=== PATIENT | female | born 1980 | race African-American/Black ===

== ENCOUNTER 2016-12-28 05:40 | Emergency (ER) | payer OTHER ==
[2016-12-28 05:25] LABS: HEMATOCRIT 38.7 % (35.0-45.0); HEMOGLOBIN 13.2 gm/dL (12.0-16.0); LYMPHOCYTE# 0.5 X10e3 (1.0-3.5); LYMPHOCYTE% 7.6 % (17.0-45.0); MEAN CELL VOLUME 93.8 FL (83-96); MEAN CORPUSCULAR HGB CONC 34.1 g/dL (30-36); MEAN PLATELET VOLUME 8.7 FL (6.5-11.5); MONOCYTE# 0.2 X10e3 (0-1.0); MONOCYTE% 3.1 % (3.0-12.0); NEUTROPHIL# 5.9 X10e3 (1.5-7.1); NEUTROPHIL% 89.3 % (40-75); PLATELET COUNT 181 X10e3 (140-420); RED BLOOD COUNT 4.13 X10e (3.90-5.30); RED CELL DISTRIBUTION WIDTH 13.2 % (11.0-15.5); WHITE BLOOD COUNT 6.6 X10e3 (4.0-10.5)
[2016-12-28 05:29] LABS: DIFF IND NO
[2016-12-28 05:49] LABS: URINE SOURCE CLEAN CATCH
[2016-12-28 05:53] LABS: ALBUMIN SERUM 4.6 g/dL (3.5-5.0); ALKALINE PHOSPHATASE 60 U/L (32-92); ALT (SGPT) 25 U/L (10-40); AST (SGOT) 28 U/L (10-42); BILIRUBIN, DIRECT 0.1 mg/dL (0.0-0.2); BILIRUBIN,INDIRECT 0.4 mg/dL (0.0-0.9); BILIRUBIN,TOTAL 0.5 mg/dL (0.2-2.0); BLOOD UREA NITROGEN 10 mg/dL (9-23); BUN/CREATININE RATIO 14.28; CALCIUM SERUM 9.5 mg/dL (8.4-10.2); CARBON DIOXIDE 23 mmol/L (22-31); CHLORIDE 107 mmol/L (100-111); CREATININE SERUM 0.7 mg/dL (0.6-1.4); GLOM FILT RATE Estimated ABOVE60 mL/min (>60); GLUCOSE FASTING 133 mg/dL (70-110); LIPASE 24 U/L (22-51); POTASSIUM 3.3 mmol/L (3.5-5.1); PROTEIN TOTAL SERUM 7.7 g/dL (6.0-8.3); SODIUM 137 mmol/L (135-145)
[2016-12-28 06:07] LABS: URINE APPEARANCE CLEAR; URINE BILIRUBIN NEG (NEG); URINE BLOOD NEG (NEG); URINE COLOR YELLOW; URINE GLUCOSE NEG (NEG); URINE KETONE NEG (NEG); URINE LEUKOCYTE ESTERASE TRACE (NEG); URINE NITRATE NEG (NEG); URINE PH 8.5 (5-8); URINE PROTEIN TRACE (NEG); URINE SPECIFIC GRAVITY 1.029 (1.003-1.035); URINE UROBILINOGEN 0.2 MG/DL (NEG)
[2016-12-28 06:10] LABS: CULTURE INDICATED? YES; URINE BACTERIA AUWI 1+ (NEGATIVE); URINE SQUAMOUS EPITHELIAL CELL FEW /[HPF]
[2016-12-28 06:14] LABS: U HYALINE CASTS AUWI 0-2 /[LPF]
[2016-12-28 06:19] LABS: AMPHETAMINE NEG (NEG); BARBITURATES NEG (NEG); BENZODIAZEPINES NEG (NEG); COCAINE NEG (NEG); MARIJUANA POS (NEG); OPIATES NEG (NEG); TRICYCLIC ANTIDEPRESSANTS NEG (NEG); U METHADONE NEG (NEG)
[2016-12-29] MEDS ORDERED: REGLAN (03:34)
[2016-12-29] MEDS ORDERED: ZOFRAN (03:34)
== END 2016-12-28 07:00 | disposition home or self-care (01) ==
LOC: CED 05:40
PROVIDERS: Emergency Medicine
DX: F12.10 Cannabis abuse, uncomplicated (principal); Z88.1 Allergy status to other antibiotic agents
CPT/HCPCS: 36415; 80048; 80076; 80307; 81003; 83690; 84703; 85025; 87086; 96361; 96374; 96375; 99284; J1885; J2405; J2765

== ENCOUNTER 2016-12-29 04:02 | Emergency (ER) | payer OTHER ==
--- NOTE | ~2016-12-29 | CT2 ---
[facility]. [facility] A Service of [facility] / [facility] RADIOLOGY TEXT RESULTS PATIENT: SANJIV MANZANO LOCATION: SED : 78 UNIT #: [id number] AGE: [address]: Alverto Canela MD SEX: F ORDER DR: [id number] [place] [id number] E MR#: [id number] Acc #: [id number] NAME: SANJIV MANZANO : 1980 SEX: F STUDY DATE/TIME: 12/29/2016 4:37 UNIT: SED ROOM: STUDY DESCRIPTION: CT Abd and Pelv W Cont Attending Physician: Alverto Canela M.D. Ordering Physician: Alverto Canela M.D. Primary Care Physician: No Primary Care Physician MEDICAL IMAGING REPORT This report is preliminary unless electronic signature is present. EXAM CT abdomen and pelvis with contrast, date: 12/29/2016 at 04:37. HISTORY 36-year-old female with mid abdominal pain and nausea, vomiting since Friday. COMPARISON None. PROCEDURE 5 mL axial images from lung bases through lesser trochanters with intravenous and enteric contrast administration. Sagittal coronal reformed images were obtained. This CT exam was performed with one or more of the following radiation dose reduction techniques: automatic exposure control, adjustment of mA and/or kV according to patient size, and iterative reconstruction. FINDINGS Lung bases are clear. Probable tiny cyst in the lateral left hepatic segment and subcapsular right hepatic lobe. Gallbladder, spleen, pancreas, adrenals and kidneys are within normal limits. No free air free fluid is identified. There is moderate gaseous distension of the colon predominately transverse and descending segments. The appendix is filled with air and appears normal. Pelvis findings: Uterus is bulky and enlarged with multiple high-density, low-density nodules and a densely calcified nodule, thought to represent multiple uterine leiomyomas. Ovaries not visualized. No definite pelvic free fluid is seen. Urinary bladder and rectum are normal. Small bilateral calcified pelvic phleboliths. [facility] A Service [facility] RADIOLOGY TEXT RESULTS PATIENT: SANJIV MANZANO LOCATION: SED : 79 UNIT #: [id number] AGE: [address]: Alverto Canela MD SEX: F ORDER DR: IMPRESSION 1. Moderate gaseous distension of the transverse and descending colon. No acute bowel inflammatory changes or evidence of bowel obstruction. 2. The appendix is normal. 3. Bulky multinodular uterus suggesting multiple uterine leiomyomas. This can be correlated to pelvic ultrasound on a non emergent basis. 4. Probable small hepatic cysts. Dictated by... Nida Hamm M.D. THIS IS AN ELECTRONICALLY VERIFIED REPORT Nida Hamm M.D. at 12/29/2016 9:57 PM LLH/tonja TD: 12/29/2016 12:53 JOB #: [id number] MEDICAL IMAGING REPORT
[~2016-12-29 04:02] MED LIST: REGLAN; ZOFRAN
[2016-12-29 04:31] LABS: ALBUMIN SERUM 4.3 g/dL (3.5-5.0); ALKALINE PHOSPHATASE 59 U/L (32-92); ALT (SGPT) 22 U/L (10-40); AST (SGOT) 27 U/L (10-42); BILIRUBIN,TOTAL 0.7 mg/dL (0.2-2.0); BLOOD UREA NITROGEN 10 mg/dL (9-23); BUN/CREATININE RATIO 14.28; CALCIUM SERUM 9.3 mg/dL (8.4-10.2); CARBON DIOXIDE 23 mmol/L (22-31); CHLORIDE 104 mmol/L (100-111); CREATININE SERUM 0.7 mg/dL (0.6-1.4); GLOM FILT RATE Estimated ABOVE60 mL/min (>60); GLUCOSE FASTING 119 mg/dL (70-110); LIPASE 28 U/L (22-51); PROTEIN TOTAL SERUM 7.9 g/dL (6.0-8.3); SODIUM 135 mmol/L (135-145)
[2016-12-29 04:32] LABS: BILIRUBIN, DIRECT <0.1 mg/dL (0.0-0.2); BILIRUBIN,INDIRECT 0.6 mg/dL (0.0-0.9); POTASSIUM 2.6 mmol/L (3.5-5.1)
[2016-12-29 05:15] LABS: BASOPHIL% 0.1 % (0-2.5); HEMOGLOBIN 12.9 gm/dL (12.0-16.0); LYMPHOCYTE# 0.9 X10e3 (1.0-3.5); LYMPHOCYTE% 13.6 % (17.0-45.0); MEAN CELL VOLUME 94.1 FL (83-96); MEAN PLATELET VOLUME 10.2 FL (6.5-11.5); MONOCYTE# 0.5 X10e3 (0-1.0); MONOCYTE% 7.2 % (3.0-12.0); NEUTROPHIL# 5.4 X10e3 (1.5-7.1); NEUTROPHIL% 79.1 % (40-75); PLATELET COUNT 192 X10e3 (140-420); RED BLOOD COUNT 4.04 X10e (3.90-5.30); RED CELL DISTRIBUTION WIDTH 13.5 % (11.0-15.5); WHITE BLOOD COUNT 6.8 X10e3 (4.0-10.5)
[2016-12-29 05:16] LABS: DIFF IND NO
== END 2016-12-29 05:29 | disposition home or self-care (01) ==
LOC: SED 04:02
PROVIDERS: Emergency Medicine
DX: D25.9 Leiomyoma of uterus, unspecified (principal); E87.6 Hypokalemia; Z98.890 Other specified postprocedural states; Z88.1 Allergy status to other antibiotic agents
CPT/HCPCS: 36415; 74177; 80048; 80076; 83690; 84703; 85025; 96374; 99284; J0780; Q9967